=== PATIENT | male | born 1945 | race Caucasian/White ===

== ENCOUNTER 2019-02-04 09:10 | Inpatient (IN) | payer MEDICARE, BC ==
[2019-02-04 11:38] LABS: ABS Eosinophils 0.3 10^3/ul (0-0.6); ABS Lymphocytes 2.5 10^3/ul (1.0-4.8); ABS Monocytes 0.5 10^3/ul (0-0.8); ABS Neutrophils 3.3 10^3/ul (1.5-7.7); Eosinophil % 4.1 %; Hematocrit 42 % (42-52); Hemoglobin 14.3 g/dL (14.0-18.0); Mean Corpuscular HGB Conc 34 g/dL (31-36); Mean Corpuscular Hemoglobin 33 pg (27-31); Mean Corpuscular Volume 97 fL (80-94); Mean Platelet Volume 7.3 fL (7.4-10.4); Nucleated Red Blood Cells % 0.1; Platelet Count 179 10^3/uL (150-450); Red Blood Count 4.29 10^6 /uL (4.18-5.48); Red Cell Distribution Width 14 % (10-15); White Blood Count 6.7 10^3/uL (3.5-10.8)
[2019-02-04 11:56] LABS: Albumin 4.1 g/dL (3.2-5.2); Albumin/Globulin Ratio 1.3 (1-3); BUN/Creatinine Ratio 19.4 (8-20); Calcium 9.4 mg/dL (8.6-10.3); EGFR African American 141.5 (>60); EGFR Non-African American 116.9 (>60); Globulin 3.1 g/dL (2-4); Magnesium 2.3 mg/dL (1.9-2.7); Potassium 3.8 mmol/L (3.5-5.0); Total Bilirubin 0.8 mg/dL (0.2-1.0); Total Protein 7.2 g/dL (6.4-8.9)
--- NOTE | 2019-02-04 11:57 | HP ---
HISTORY AND PHYSICAL: ADDENDUM: The patient had a repeat catheterization performed by Dr. Madsen of [facility] on 09/30/18 because of decreased exercise capacity and decreased ejection fraction. At that time, he aguayo d a patent JENNINGS to the LAD, severely reduced LV function, normal right and left filling pressures for his cardiac index. His left main was 70%, severely calcified, D1 of the LAD was 70%, left distal ci rc was 50%, OM1 was 70%, ostial RCA was 50%, mid RCA was 80%, distal RCA was 50%, EF fell to be 30%, 1+ MR. Stress test from 10/06/18 revealed a small size infarct at the proximal septum without any si gnificant reversibility, small size infarct at distal LAD and on the distal LAD diagonal branch witho ut significant reversibility, acwma-oc-ijwjph size infarct in the shocf-ru-tek inferior and inferolat eral wall with mild jonathan-infarct ischemia, mostly fixed, reduced EF of 41% at rest and 45% with stres s. His Holter from 09/06/18 revealed 9000 PVCs. [id number]/[facility] #: [id number]
[2019-02-04] MEDS ORDERED: Sotalol TAB* 80 MG PO SCH (12:00)
[2019-02-04 12:03] LABS: Activated Partial Thrombo Time 31.7 seconds (26.0-38.0); INR 0.97 (0.82-1.09)
--- NOTE | 2019-02-04 12:31 | HP ---
CC: Dr. Villafuerte; Dr. Reed; Dr. 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 HISTORY OF PRESENT ILLNESS: This is a very pleasant 73-year-old gentleman with a longstanding history of ischemic cardiomyopathy. Over the last several months , he had complained of decreased exercise tolerance and was noted to have a decrease in his ejection fraction. He also was noted to have frequent PVCs. He was started on Entresto and increased doses of metoprolol with improvement in his function; however, he continued to have a high burden of PVCs. After consultation with Dr. Agustin of [facility] electrophysiology, it was decided to implement sotalol therapy to suppress his PVC's and decrease likelihood of PVC- induced dysfunction. He had a MUGA scan on 11/11/18 that revealed improvement of the EF to 42% and it was decided to defer pacemaker defibrillator implantation. He had an overnight pulse oximetry on 11/05/18, which revealed O2 sats less than 88% over 20 seconds overnight. He reports that his exercise tolerance has improved. He is swimming for 30 to 40 minutes 4 to 5 times a week. He denies chest pain, syncope, near syncope, orthopnea, PND, and said he is feeling more like the way he felt a year ago. He also has a history of neuromuscular disorder with chronically elevated CKs. He had an increase in his CKs on statins in the past. He responded nicely to PCSK9 inhibitor, but discontinued it due to cough. He has been titrated slowly on Crestor. His Crestor was increased to 2.5 mg 3 times a week about a week ago. Of note, his CK on 01/26/19 was 543 with cholesterol of 209, HDL of 45.9, LDL of 119, triglycerides of 220. PAST MEDICAL HISTORY: His other past medical history includes 1. coronary artery bypass grafting in 2004 with JENNINGS to the LAD, saphenous vein graft to the diagonal, and posterolateral branch of the circumflex and posterior descending artery and a saphenous vein graft to the first OM. 2. In October of 2004, he had a cath and was found to have all grafts occluded except JENNINGS. 3. hyperlipidemia tobacco use discontinued roughly the time of his surgery, 4. carotid disease 30% to 50% in 2005 bilaterally 5. benign positional vertigo in September of 2008 6. achalasia 7. hypothyroidism. 8. DM II 9. 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 PAST SURGICAL HISTORY: Include coronary bypass graft in October 2004 and laparotomy for perforated viscus after falling out of a tree in 2008. ALLERGIES: He denies any allergies. 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 He has 3 adult sons. He denies alcohol use. He drinks 1 cup of caffeinated coffee a day. Denies tobacco use. Family HX; F AAA 83 mother 91 brother UT age 73 2 sisters. REVIEW OF SYSTEMS: Review of systems x12 was negative except as above. PHYSICAL EXAMINATION GENERAL: He is a well-developed, well-nourished gentleman, overweight, in no apparent distress. Alert and oriented x3. VITAL SIGNS: Blood pressure was 125/53, afebrile, pulse is 64. NECK: No significant JVD. Carotids 2+ with bruits. No cervical lymphadenopathy. No thyromegaly. LUNGS: Chest was clear. No CVAT. CARDIAC: S1, S2 somewhat distant. No clear murmurs, gallops, or rubs. ABDOMEN: Bowel sounds present, nontender. No hepatosplenomegaly. There is a healed midline surgical scar consistent with his history. NEUROLOGIC: Femoral pulse intact without bruits. Distal pulses diminished but present. No significant edema. Motor strength 5/5 bilaterally. Deep tendon reflexes 2/4. Alert and oriented x3. DIAGNOSTIC STUDIES/LAB DATA: EKG is pending. repeat catheterization performed by Dr. Madsen of [facility] on because of decreased exercise capacity and decreased ejection fraction. At that time, he had a patent JENNINGS to the LAD, severely reduced LV function, normal right and left filling pressures for his cardiac index. His left main was 70%, severely calcified, D1 of the LAD was 70%, left distal circ was 50%, OM1 was 70%, ostial RCA was 50%, mid RCA was 80%, distal RCA was 50%, EF fell to be 30%, 1+ MR. Stress test from 10/06/18 revealed a small size infarct at the proximal septum without any significant reversibility, small size infarct at distal LAD and on the distal LAD diagonal branch without significant reversibility, small-to- medium size infarct in the ckzua-ci-lvw inferior and inferolateral wall with mild jonathan-infarct ischemia, mostly fixed, reduced EF of 41% at rest and 45% with stress. Holter from 09/06/18 revealed 9000 PVCs. IMPRESSION: My impression is that Mr. 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 His LV function improved with increasing his beta- jackeline and entresto, but he continues to have high burden of PVCs. After consultation with Electrophysiology at [facility] with Dr. Agustin, it was decided to have the patient admitted for initiation of sotalol therapy to try to further suppress his PVCs. We discussed the potential risks including proarrhythmia, syncope, near syncope, bradycardia. He understands the potential need for resuscitation if he develops life threatening arrhythmia and he understands the plan to monitor him for at least 72 hours on therapy and monitor his electrolytes. For the time being, I recommend the following: Reviewed his labs from 01/26/19 and we will recheck them today. We will get a baseline EKG. Once we have the baseline EKG, we will initiate sotalol 80 mg b.i.d. We will reduce his metoprolol to 12.5 mg b.i.d. and titrate downward as needed to avoid the bradycardia and hypotension. We will hold his spironolactone for now. We will recheck his muscle enzymes and follow them on Crestor. We will reduce his Entresto to one twice a day and further if necessary to avoid hypotension, We will monitor his heart rate and blood pressure. We will repeat his echo. I did discuss the risks and benefits of lipid lowering with statins and additional potential benefits of Repatha. He is willing to consider Repatha, but has declined in the past because he spends 6 months a year in [place] and has logistical problems obtaining coverage and treatment there. He understands risks and benefits and I discussed it with his . He is going to review his options and consider my suggestion that he restart the Repatha. [id number]/[facility] #: [id number] ALISA
[2019-02-04 12:33] LABS: TSH (Thyroid Stimulating Horm) 1.27 mcIU/mL (0.34-5.60)
[2019-02-04] MEDS: Enoxaparin(*) 40 MG/0.4 ML SYR SUBCUT SCH (12:55)
[2019-02-04] MEDS ORDERED: Potassium Chloride* LIQUID 20 MEQ/15 ML UDC PO ONE (13:20)
[2019-02-04 13:47] LABS: Hepatitis C Antibody Negative (Negative)
[2019-02-04] MEDS ORDERED: Perflutren Lipid Microsphere* 3 ML VIAL ONE (14:28)
[2019-02-04] MEDS ORDERED: Sotalol TAB* 80 MG PO ONE (17:10)
--- NOTE | 2019-02-04 19:40 | ECHO ---
*[facility]* [place] [address] Fax #: [phone] Transthoracic Echocardiogram Patient: Harris Alcantar : 1945 Study Date: 02/04/2019 Age: 73 Gender: M HR: 69 bpm Height: 67 in /170.2 cm BSA: 1.91 m^2 Weight: 173.6 lb /78.9 kg BMI: 27.3 kg/m^2 *Platform Man: * Cora Horowitz RD *Referring Physician: * Trell Villafuerte MD *Reading Physician: * Trell Villafuerte MD Indications: Cardiomyopathy. History: Coronary artery disease. PMH: Myocardial infarction. Risk factors: Former tobacco use. Labs, prior tests, procedures, and surgery: Coronary artery bypass grafting. Conclusions Summary: - Left ventricle: Systolic function is moderately reduced. The estimated ejection fraction is 35-40%. Systolic function is improved from the study of August 2018 when it was 30-35%. Similar ejection fraction to the prior ejection fraction of 10/2018. Diffuse hypokinesis with distinct regional wall motion abnormalities. The anterior and anteroseptal segments are best preserved. Doppler parameters are consistent with abnormal left ventricular relaxation (grade 1 diastolic dysfunction). - Right ventricle: The cavity size is mildly dilated. Systolic function is mildly reduced. - Right atrium: The atrium is mildly dilated. - Mitral valve: There is mild to moderate regurgitation. - Tricuspid valve: There is mild-moderate regurgitation. - Pulmonic valve: There is trace to mild regurgitation. Study data: Transthoracic echocardiogram. Procedure: Transthoracic echocardiography was performed. Image quality was suboptimal. The study was technically limited due to poor acoustic window availability. Intravenous Definity , 4.5 mlswas administered. Complete 2D, spectral Doppler, and color flow Doppler. Location: Bedside. Patient status: Inpatient. Patient room number: 442-01. The previous study was not available, so comparison is made to the report of August 2018. Rhythm: Normal sinus rhythm with PVC's. Findings Left ventricle: The cavity size is normal. Wall thickness is normal. Systolic function is moderately reduced. The estimated ejection fraction is 35-40%. Systolic function is improved from the study of August 2018 when it was 30-35%. Diffuse hypokinesis with distinct regional wall motion abnormalities. Regional wall motion abnormalities: Hypokinesis of the basal-midanterolateral myocardium. Hypokinesis of the basalinferolateral myocardium. Hypokinesis of the mid inferoseptal, mid inferior, and basal-mid inferolateral myocardium. Doppler parameters are consistent with abnormal left ventricular relaxation (grade 1 diastolic dysfunction). Right ventricle: The cavity size is mildly dilated. Systolic function is mildly reduced. Systolic pressure is within the normal range. Ventricular septum: Ventricular septal wall motion has a postoperative appearance. Left atrium: The atrium is at the upper limits of normal in size. Right atrium: The atrium is mildly dilated. Mitral valve: The leaflets are mildly thickened. There is no evidence of stenosis. There is mild to moderate regurgitation. Aortic valve: The valve is trileaflet. The leaflets are mildly thickened. There is no evidence of stenosis. There is no significant regurgitation. Tricuspid valve: The leaflets are normal thickness. There is no evidence of stenosis. There is mild-moderate regurgitation. Pulmonic valve: The leaflets are normal thickness. There is no evidence of stenosis. There is trace to mild regurgitation. Aorta: Aortic root: The aortic root is upper normal in size. Ascending aorta: The ascending aorta is upper normal in size. Aortic arch: The aortic arch is appears normal. Pericardium: A prominent pericardial fat pad is present. There is no significant pericardial effusion. Pulmonary arteries: The main pulmonary artery is normal-sized. Systolic pressure is within the normal range. Pulmonary artery pressure may be underestimated Systemic veins: Inferior vena cava: The vessel is normal in size. There is (>= 50%) respiratory change in the IVC dimension. Measurements Left ventricle Value Ref Aortic valve Value Ref ARUN, LAX 5.1 cm 4.2 - 5.8 Ana diam, ED 2.0 cm ----- ESD, LAX (H) 4.2 cm 2.5 - 4.0 Peak v, S 1.07 m/sec ----- FS, LAX (L) 18 % 25 - 43 VTI, S 21.0 cm ----- PW, ED, LAX 0.9 cm 0.6 - 1.0 Mean grad, S 3.0 mm Hg ----- FS (L) 18 % 25 - 43 Peak grad, S 5.0 mm Hg ----- PW, ED 0.9 cm 0.6 - 1.0 LVOT/AV, VTI ratio 0.52 ----- PW/ID, ED 0.18 E', lat ana, TDI (L) 9.1 cm/sec >=10.0 Mitral valve Value Ref E/e', lat ana, 4 Peak E 0.4 m/sec ----- TDI Peak A 0.57 m/sec ----- E', med ana, TDI (L) 5.7 cm/sec >=7.0 Decel time 218 ms --- -- E/e', med ana, 7 Peak E/A ratio 0.7 ----- TDI E', avg, TDI 7.4 cm/sec Pulmonic valve Value Ref E/e', avg, TDI 5 <=14 Peak v, S 0.74 m/sec --- -- Peak grad, S 2.0 mm Hg ----- LVOT Value Ref MA v, ED 1.06 m/sec ----- Peak jade, S 0.68 m/sec VTI, S 11.0 cm Tricuspid valve Value Ref Mean grad, S 1 mm Hg TR peak v 2.29 m/sec <=2.8 Peak RV-RA grad, S 21 mm Hg ----- Ventricular septum Value Ref IVS, ED 0.9 cm 0.6 - 1.0 Aortic root Value Ref Root diam 3.7 cm <4.1 Right ventricle Value Ref Root max diam, ED 3.7 cm <4.1 AW thickness, ED 0.5 cm 0.1 - 0.5 ARUN, LAX 3.0 cm Ascending aorta Value Ref ARUN minor ax, A4C (H) 4.4 cm 1.9 - 3.5 AAo AP diam, S 3.6 cm ----- mid Pressure, S 24 mm Hg Aortic arch Value Ref Arch diam 2.8 cm ----- Left atrium Value Ref AP dim, ES 3.80 cm 3.00 - Decending aorta Value Ref 4.00 Valeri peak jade 0.63 m/sec ----- ML dim, A4C 4.3 cm SI dim, A4C 5.1 cm Pulmonary artery Value Ref Vol/bsa, ES, 1-p 29 ml/m^2 12 - 37 Pressure, S 22.0 mm Hg ----- A4C Vol/bsa, ES, A/L 29 ml/m^2 16 - 34 Inferior vena cava Value Ref Diam 1.4 cm ----- Right atrium Value Ref SI dim, ES (H) 5.4 cm 3.4 - 5.3 ML dim, ES, A4C 4.2 cm 2.6 - 4.4 SI dim, ES, A4C (H) 5.4 cm 3.4 - 5.3 Estimated RAP 3 mm Hg Legend: (L) and (H) dieudonne values outside specified reference range. Prepared and electronically signed by Trell Villafuerte MD 02/04/2019 19:40
[2019-02-04] MEDS ORDERED: Sacubitril/Valsartan 24/26(NF) 1 TAB PO SCH ×2 (21:00)
[2019-02-04] MEDS ORDERED: Metoprolol Tartrate TAB* 25 MG PO SCH ×2 (21:00)
[2019-02-05] MEDS: Levothyroxine TAB* 25 MCG TAB PO SCH (05:23)
[2019-02-05 05:38] LABS: BUN/Creatinine Ratio 18.1 (8-20); EGFR African American 130.2 (>60); EGFR Non-African American 107.6 (>60); Potassium 3.8 mmol/L (3.5-5.0)
[2019-02-05] MEDS: metFORMIN* 500 MG TAB PO SCH (08:51)
[2019-02-05] MEDS: Potassium Chlor TAB* 20 MEQ TAB.ER PO SCH (08:51)
[2019-02-05] MEDS: Clopidogrel TAB* 75 MG PO SCH (08:52)
[2019-02-05] MEDS: Aspirin EC TAB* 81 MG TAB.EC PO SCH (08:53)
[2019-02-05] MEDS ORDERED: Ezetimibe TAB* 10 MG PO ONE (08:59)
[2019-02-05] MEDS ORDERED: PTO:Sacubitril/Valsartan 24/26(NF) 1 TAB PO SCH (09:00)
[2019-02-05] MEDS ORDERED: Pneumococcal *Vac Polyvalent 0.5 ML VIAL IM ONE (09:00)
[2019-02-05] MEDS ORDERED: Metoprolol Tartrate TAB* 25 MG PO SCH (09:00)
[2019-02-05] MEDS ORDERED: Influenza VAC *QUAD* 2019-20* 0.5 ML SYRINGE IM ONE (09:00)
[2019-02-05] MEDS: CMCS Rosuvastatin (NF) 5 MG TAB PO SCH (09:47)
[2019-02-05] MEDS: Sotalol TAB* 80 MG PO SCH ×2 (09:51→21:31)
[2019-02-05] MEDS ORDERED: Potassium Chloride* LIQUID 20 MEQ/15 ML UDC PO ONE (10:29)
[2019-02-05] MEDS: Enoxaparin(*) 40 MG/0.4 ML SYR SUBCUT SCH (11:35)
[2019-02-05] MEDS: PTO:Sacubitril/Valsartan 24/26(NF) 1 TAB PO SCH ×2 (11:59→21:31)
[2019-02-05 13:50] LABS: Urine Appearance Clear; Urine Bilirubin Negative (Negative); Urine Blood Negative (Negative); Urine Color Yellow; Urine Glucose Negative (Negative); Urine Ketones Negative (Negative); Urine Nitrite Negative (Negative); Urine Protein Negative (Negative); Urine Specific Gravity 1.012 (1.010-1.030); Urine Urobilinogen Negative (Negative)
[2019-02-05 14:56] LABS: Creatine Kinase 823 U/L (39 - 308)
[2019-02-05] MEDS: Metoprolol Tartrate TAB* 25 MG PO SCH (23:22)
[2019-02-06] MEDS: Levothyroxine TAB* 25 MCG TAB PO SCH (05:45)
[2019-02-06 07:51] LABS: BUN/Creatinine Ratio 18.2 (8-20); Calcium 9.1 mg/dL (8.6-10.3); Potassium 3.8 mmol/L (3.5-5.0)
[2019-02-06] MEDS: Enoxaparin(*) 40 MG/0.4 ML SYR SUBCUT SCH (09:06)
[2019-02-06] MEDS: Potassium Chlor TAB* 20 MEQ TAB.ER PO SCH (09:07)
[2019-02-06] MEDS: Aspirin EC TAB* 81 MG TAB.EC PO SCH (09:07)
[2019-02-06] MEDS: metFORMIN* 500 MG TAB PO SCH (09:08)
[2019-02-06] MEDS: Clopidogrel TAB* 75 MG PO SCH (09:08)
[2019-02-06] MEDS: PTO:Sacubitril/Valsartan 24/26(NF) 1 TAB PO SCH ×2 (09:09→21:27)
[2019-02-06] MEDS: Sotalol TAB* 80 MG PO SCH ×2 (09:10→21:27)
[2019-02-06] MEDS ORDERED: Potassium Chloride* LIQUID 20 MEQ/15 ML UDC PO ONE (11:11)
[2019-02-06] MEDS ORDERED: CMC:Rosuvastatin (NF) 5 MG TAB PO ONE (11:13)
[2019-02-06] MEDS: Metoprolol Tartrate TAB* 25 MG PO SCH ×2 (12:00→23:35)
[2019-02-06 13:53] LABS: Calcium 9.3 mg/dL (8.6-10.3); EGFR African American 134.5 (>60); EGFR Non-African American 111.2 (>60); Magnesium 2.3 mg/dL (1.9-2.7); Potassium 4.9 mmol/L (3.5-5.0)
[2019-02-07] MEDS: Levothyroxine TAB* 25 MCG TAB PO SCH (06:28)
[2019-02-07 07:50] LABS: BUN/Creatinine Ratio 18.5 (8-20); Calcium 9.1 mg/dL (8.6-10.3); EGFR African American 146.5 (>60); EGFR Non-African American 121.1 (>60); Potassium 3.9 mmol/L (3.5-5.0)
[2019-02-07] MEDS: Aspirin EC TAB* 81 MG TAB.EC PO SCH (08:56)
[2019-02-07] MEDS: Potassium Chlor TAB* 20 MEQ TAB.ER PO SCH (08:56)
[2019-02-07] MEDS: CMCS Rosuvastatin (NF) 5 MG TAB PO SCH (08:56)
[2019-02-07] MEDS: metFORMIN* 500 MG TAB PO SCH (08:57)
[2019-02-07] MEDS: Clopidogrel TAB* 75 MG PO SCH (08:57)
[2019-02-07] MEDS: Sotalol TAB* 80 MG PO SCH (08:57)
[2019-02-07] MEDS: PTO:Sacubitril/Valsartan 24/26(NF) 1 TAB PO SCH (08:58)
[2019-02-07] MEDS ORDERED: Potassium Chloride* LIQUID 20 MEQ/15 ML UDC PO ONE (11:22)
[2019-02-07 11:43] VITALS: BP 134/74
[2019-02-07] MEDS: Metoprolol Tartrate TAB* 25 MG PO SCH (11:43)
[2019-02-07] MEDS: Enoxaparin(*) 40 MG/0.4 ML SYR SUBCUT SCH (11:43)
--- NOTE | 2019-02-07 15:05 | DS ---
CC: Dr. Trell Villafuerte; Dr. Reed; Dr. Polo Agustin" at [facility] DISCHARGE SUMMARY: DATE OF ADMISSION: 02/04/19 DATE OF DISCHARGE: 02/07/19 REASON FOR ADMISSION: Initiation of sotalol therapy for frequent PVCs, PVC- induced cardiomyopathy. See my admission note from 02/04/19 for details. HOSPITAL COURSE: This is a very pleasant 73-year-old gentleman with a history of ischemic cardiomyopathy, recently noted to have decreased exercise tolerance , decreased ejection fraction from his baseline, and frequent PVCs. He was treated with Entresto and metoprolol and had some improvement in his EF to about 42%, but continued to have frequent PVCs. 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 His blood pressures were initially low and his sotalol was deferred until his blood pressure was adequate to accept 40 mg on the evening of the 02/04/19. He subsequently was on 80 mg b.i.d. He has tolerated it well, although we have had to reduce his other heart failure medicines to allow sufficient blood pressure to advance his sotalol therapy. His spironolactone was held, his metoprolol was decreased, and his Entresto was decreased. He has had no syncope or near syncope. He has been ambulating about the mack. He has had no VT. His QT has remained stable and his PVCs by rough estimate appeared to have decreased from frequently between 10 and 20 PVCs per minute down to mostly less than 10 PVCs per minute and sometimes 0 to 5 PVCs per minute. He also had potassium that was below 4 and he has received supplementation of potassium. He denies any orthopnea, peripheral edema. No syncope or near syncope. Over the course of this admission, he has had echocardiogram performed on , which revealed an EF of 35% to 40%, improved compared to August of 2018 was 30 % to 35% similar to the prior ejection fraction of October of 2018; mild-to- moderate MR; [id number] TR; and PA pressure in the normal range. His chest x-ray revealed hyperinflated lung watkins with definite infiltrates and his EKG from today revealed sinus rhythm at [address]-T depressions and QT of 441 at a rate of 62, QTc of 448, and 2 PVCs. PHYSICAL EXAMINATION: He is a well-developed, well-nourished gentleman, in no apparent distress. Blood pressure 102/55, pulse of 62. No significant JVD. Cardiac Exam: S1, S2. No clear murmurs, gallops, or rubs. Chest was clear. Extremities: No edema. DIAGNOSTIC STUDIES/LAB DATA: Labs from today include a potassium of 3.9, BUN of 12, creatinine of 0.65. CK yesterday was 306, down from 823 on 02/04/19. His MCV was elevated at 97 on 02/04/19. IMPRESSION AND PLAN: My impression is that Mr. 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 I had a long discussion with the patient and his at the bedside today and recounted the purpose of this admission and the significant findings from this admission including the followin. The need to adjust his medicines to allow him to maintain his blood pressure on his heart failure regimen and his Betapace. 2. We also discussed the fact that his QT has been stable and his PVCs have decreased but not been eliminated. 3. He understands the need for continued surveillance of his blood pressures, heart rates, PVCs, LV function, and the need to adjust his medicines as an outpatient. 4. Ideally, I would like to add back his spironolactone if his blood pressure will tolerate it. 5. He is to avoid caffeine. I asked him to eliminate green tea and other source of caffeine from his diet. 6. He is to increase his intake of potassium. 7. He is to have a 24-hour Holter monitor in 1 to 2 weeks. 8. He is to follow up in the office in 2 to 4 weeks to confirm the stability of his blood pressures and heart rates on the current medicines. 9. He is to stop his metoprolol at this point in time given the low normal blood pressures and heart rates. 10. We also discussed his hyperlipidemia and the potential need for derivability of treating with agents that decrease his risk for morbidity and mortality in the future. 11. Given his inability to tolerate statins except at extremely low doses, I did strongly recommend again that he restart Repatha. He has been researching his ability to get it when he spends time in [place], which is 6 months of a year. At this point, he is agreeable restarting it and will consider restarting that in the next 2 weeks. 12. Hopefully, we will be able to continue a low dose of Crestor perhaps 2.5 mg twice a week to avoid exacerbation of his CK elevations and myalgias. Currently, he is on 2.5 three times a week. TIME SPENT: More than half of the 45 minutes was spent with the patient was coordinating his discharge and discussing his multiple questions. [id number]/[facility] [place] #: [id number] ALISA
[2019-02-09 16:32] LABS: Creatine Kinase BB 0 % (0); Creatine Kinase MB 0 % (0)
== END 2019-02-07 13:00 | disposition home or self-care (01) | DRG 950 ==
LOC: MEDTELE 09:10
PROVIDERS: ADMIT Internal Medicine Cardiovascular Disease; ATTEND Internal Medicine Cardiovascular Disease
PROC: 3E033RZ Introduction of Antiarrhythmic into Peripheral Vein, Percutaneous Approach (ICD-10-PCS; principal; 2019-02-04)
DX: Z51.81 Encounter for therapeutic drug level monitoring (principal); I49.3 Ventricular premature depolarization; I25.5 Ischemic cardiomyopathy; I08.1 Rheumatic disorders of both mitral and tricuspid valves; I25.10 Atherosclerotic heart disease of native coronary artery without angina pectoris; E78.5 Hyperlipidemia, unspecified; G70.9 Myoneural disorder, unspecified; E03.9 Hypothyroidism, unspecified; E11.40 Type 2 diabetes mellitus with diabetic neuropathy, unspecified; Z95.1 Presence of aortocoronary bypass graft
CPT/HCPCS: 36415; 71046; 80048; 80053; 81003; 82550; 83036; 83735; 84443; 85025; 85610; 85730; 86803; 90686; 90732; 93005; 93306; A9270-GY; C8929; J1650